=== PATIENT | female | born 1990 | race Two or more races ===

== ENCOUNTER 2019-01-19 19:45 | Emergency (ER) | payer MEDICAID ==
[~2019-01-19] VITALS: Ht 165.1 cm; Wt 88.9 kg
[2019-01-19] MEDS ORDERED: TETANUS-DIPTH-ACEL PERTUSSIS 0.5ML SYRG IM ONE (22:45)
[2019-01-19] MEDS ORDERED: IBUPROFEN 800 MG TAB PO ONE (22:45)
[2019-01-19 23:06] VITALS: BP 116/62
== END 2019-01-19 23:17 | disposition home or self-care (01) ==
LOC: ER 19:50
DX: S91.331A Puncture wound without foreign body, right foot, initial encounter (principal); W50.0XXA Accidental hit or strike by another person, initial encounter; Y93.89 Activity, other specified; Y92.89 Other specified places as the place of occurrence of the external cause; Y99.8 Other external cause status
CPT/HCPCS: 90471; 90715